=== PATIENT | female | born 1985 ===

== ENCOUNTER 2017-01-08 10:57 | Emergency (ER) | payer SELFPAY ==
[2017-01-08 11:51] VITALS: BMI 30.2
[2017-01-08] MEDS ORDERED: Lactated Ringer's 1,000 ML IV SCH (12:15)
--- NOTE | 2017-01-08 14:24 | OBHP ---
Datetime: 01/08/2017 12:02 IP Adm Impression: Term, intrauterine IP Admit Plan: Observation/Evaluation; Discharge home Admit Comment, IP Provider: 31 yo at 39.4 weeks GA, with ASHOK 01/11 by 1st trimester u/s pres ented to ARIANNA with contractions since 5 am. Rates contraction pain 3-05/30. Denies vaginal bleeding, d enies loss of fluid. Reports movement; states yesterday movement was decreased but today is present. OBhx: 2 NVD (2003 at full term, 2010 induction at 36 weeks due to cholestasis). 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 Sierra labs unremarkable. Threatened PTL at 29-30 weeks, tx with steroids, magnesium sulfate and terbutaline. ROS: denies headache, dizziness, sob, chest pain, n/v/d/c, burning with urination PE: Gen: alert, oriented CV: S1S2 present, RRR Resp: clear to auscultation bilaterally, normal resp effort Abd: gravid, +BS Extremities: no edema, no tenderness SVE: FT, long, thick. A/P: 31 yo at 39.4 weeks GA, ryanne regularly but not in active labor. 1L NS Re-evaluate in 2-3 hrs or as needed for cervical changes Pt seen and discussed with Dr. Mann. -[email or web address]. Addendum at 14:15 SVE: unchanged, still FT, thick, high, posterior. D/c home with labor precautions. F/u at [facility] on Monday OB Hospitalist Addendum: Pt seen and examined. Agree w/ above. 31 yo at 39+4 wks w/ c/o painful ctxns since 5am, denies LOF and VB, reports decreased movement. VE FT/ long/ posterio r at 12 noon. Pt received IVF, ate lunch, and ambulated. VE unchanged at 2:09 pm. Pt reported feel ing movement. Discharged home w/ labor precautions. Pt has an appoint on Mon., 01/11/2017. (ES) Pelvic Type - PN: Adequate Extremities - PN: Normal Abdomen - PN: Normal Back - PN: Normal Breast - PN: Not Done Lungs - PN: Normal Heart - PN: Normal Thyroid - PN: Not Done Neurologic - PN: Normal HEENT - PN: Normal General - PN: Normal FHR - Baseline A Provider: 150 Comments, ACOG Physical Exam: SVE @ 12:00 FT, thick, high, posterior. SVE @ 14:15 - unchanged Gestation - Est Wks by US: 39.4 EGA AdmitDate IP: 39.4 Vital Signs Provider: Reviewed IP Chief Complaint: Uterine contractions NICHD Variability Prov Fetus A: Moderate 6-25bpm NICHD Accel Fetus A IP Provider: 15X15 FHR Category Provider Fetus A: Category I Dilatation, Provider: FT Genitourinary Exam: Normal DTRs - PN: Not Done
[2017-01-08 18:28] VITALS: BP 102/53; PULSE 59; TEMP 97.9
== END 2017-01-08 14:20 | disposition home or self-care (01) ==
LOC: H.EROB2 10:57
DX: O47.1 False labor at or after 37 completed weeks of gestation (principal); Z3A.39 39 weeks gestation of pregnancy
CPT/HCPCS: 99283; J7120

== ENCOUNTER 2017-01-18 10:02 | Inpatient (IN) | payer MEDICAID, SELFPAY ==
[2017-01-18] MEDS ORDERED: Lactated Ringer's 1,000 ML IV SCH ×2 (11:45)
[2017-01-18 13:40] LABS: BASO % 0.3 % (0.0-2.0); EOS # 0.1 K/uL (0.0-0.7); EOS % 0.9 % (0.0-4.0); HEMATOCRIT 36.1 % (34.0-47.0); LYMPH # 1.3 K/uL (1.0-4.3); LYMPH % 22.5 % (20.0-40.0); MEAN CELL VOLUME 89.1 fl (81.0-99.0); MEAN CORPUSCULAR HEMOGLOBIN 29.4 pg (27.0-31.0); MEAN PLATELET VOLUME 10.9 fl (7.2-11.7); MONO # 0.5 K/uL (0.0-0.8); MONO % 8.5 % (0.0-10.0); NEUT # 3.9 K/uL (1.8-7.0); NEUT % 67.8 % (50.0-75.0); NRBC % 0.1 % (0.0-0.0); RED CELL DISTRIBUTION WIDTH 14.2 % (11.5-14.5); WHITE BLOOD COUNT 5.8 K/uL (4.8-10.8)
[2017-01-19] MEDS ORDERED: Fentanyl/Bupivacaine HCl 250 ML EPI ONE (04:06)
[2017-01-19] MEDS ORDERED: Bupivacaine HCl 0.25% PF (10 ml) Inj ONE (04:06)
[2017-01-19] MEDS ORDERED: Oxytocin 30 UNITS in Sodium Chloride 0.9% 500 ML IV ONE (05:05)
[2017-01-19] MEDS ORDERED: Lidocaine 1% Inj (20ml) ONE (05:10)
--- NOTE | 2017-01-19 08:02 | OBHP ---
Datetime: 01/18/2017 11:42 IP Adm Impression: Postterm, intrauterine IP Admit Plan: Admit to unit; Initiate labor protocol; Initiate labor induction protocol Admit Comment, IP Provider: CC: IOL HPI: 31YO @ 41wks is seen in L_D for IOL. Pt states that she is feeling well. Endorses good F M, no LOF, VB and occasional ctx. Pt is comfortable. Prentals: Dr. Hair, [facility] OBHx: NVD x 2 2003 and 2010(IOL @ 36 wks for cheolestasis) GyNHx: normal pap, Denies STIs PMH: denies SurgH: denies FH: denies SH: denies ETOH, smoking, and illicit drug use Allergies: NKDA Meds: PNV PE Vitals: stable Gen: NAD Cardio: S1S2 no M/G/R Resp: vesicular breathing b/l Abdomen: gravid, NT, BS+ Neuro: AAO x 3 Ext: no edema noted, NT FM: 140, moderate variability catagory I Cervx: 1cm/thick/-3 bedside u/s: vertex Assessment/Plan: 31YO @ 41wks is admitted for IOL. GBS neg, HIV neg, RPR neg, O+, HepB neg, H epB neg, rubella immune. -admit pt -vitals -continue FM -blood work -IV fluids Samaria Panchal, PGY I The patient was seen with the resident and I agree with note Pelvic Type - PN: Adequate Extremities - PN: Normal Abdomen - PN: Normal Back - PN: Normal Breast - PN: Not Done Lungs - PN: Normal Heart - PN: Normal Thyroid - PN: Normal Neurologic - PN: Not Done HEENT - PN: Normal General - PN: Normal FHR - Baseline A Provider: 140 EGA AdmitDate IP: 41.0 Vital Signs Provider: Reviewed; Within Normal Limits IP Indication for Induction: Postterm IP Chief Complaint: Scheduled induction of labor NICHD Variability Prov Fetus A: Moderate 6-25bpm NICHD Accel Fetus A IP Provider: 15X15 FHR Category Provider Fetus A: Category I Dilatation, Provider: 1cm Effacement, Provider: thick Station, Provider: -3 Genitourinary Exam: Normal DTRs - PN: Not Done
--- NOTE | 2017-01-19 08:02 | OBDS ---
DELIVERY PERSONNEL Delivery Doctor: Henri Bar MD Scrub Nurse: Brandy Mayers Alarm Technician: Karma Hall RN Anesthesiologist: Marilee Valentin MD Resident: Dr. Blackman PGY1 MATERNAL INFORMATION Delivery Anesthesia: Epidural Medications in Delivery: 30 units of pitocin Placenta Cultured: No Maternal Complications: None Provider Comments: Over intact perineum, of live male at 5:29am, Weight 3795gm, 9/9 APGA R. Right Anterior shoulder was delivered after head delivered in a controlled manner followed by post. shoulder and body. Infant was placed on mother, skin to skin was done. Infant was bulb suctioned nasopharygeally a nd crying spontaneously. umbilical cord was clamped and cut by baby's father. Placenta was delivered intact spontaneously. No Laceration noted. EBL 200cc. patient and baby remained stable Supervising Attending: Dr. Bar --- Nichole Blackman, PGY-1 I was present at delivery I agree with note LABOR SUMMARY EDC: 01/11/2017 00:00 No. Babies in Womb: 1 Attempted: No Labor Anesthesia: Epidural LABOR INFORMATION Reason for Induction: Postterm Onset of Labor: 01/19/2017 02:45 Complete Dilatation: 01/19/2017 05:05 Cervical Ripening Agents: Cervidil Oxytocin: N/A Group B Beta Strep: Negative Antibiotics # of Doses: n/a Antibiotics Time of Last Dose: n/a Steroids Given: None Reason Steroids Not Administered: Not Applicable MEMBRANES Membranes Rupture Method: Spontaneous Rupture of Membranes: 01/19/2017 05:05 Length of Rupture (hrs): 0.40 Amniotic Fluid Color: Clear Amniotic Fluid Amount: Moderate Amniotic Fluid Odor: Normal STAGES OF LABOR Stage 1 hrs: 2 Stage 1 min: 20 Stage 2 hrs: 0 Stage 2 min: 24 Stage 3 hrs: 0 Stage 3 min: 3 Total Time in Labor hrs: 2 Total Time in Labor min: 47 VAGINAL DELIVERY Episiotomy: None Laceration Extension: N/A Laceration Type: None Laceration Repair: Not Applicable Laceration Repair Note: None Initial Vag Sponge Count: 5 Final Vag Sponge Count: 5 Initial Vag Sharps Count: 0 Final Vag Sharps Count: 0 Sponge Count Correct: Yes Sharps Count Correct: N/A BABY A INFORMATION Infant Delivery Date/Time: 01/19/2017 05:29 Method of Delivery: Vaginal Born in Route : No : N/A Forceps: N/A Vacuum Extraction: N/A Shoulder Dystocia : No SHOULDER DYSTOCIA BABY A Infant Delivery Date/Time: 01/19/2017 05:29 PRESENTATION/POSITION BABY A Presentation: Cephalic Cephalic Presentation: Vertex Breech Presentation: N/A PLACENTA INFORMATION BABY A Placenta Delivery Time : 01/19/2017 05:32 Placenta Method of Delivery: Spontaneous Placenta Status: Delivered SCORES BABY A Heart Rate 1 min: >100 bpm Resp Effort 1 min: Good Cry Reflex Irritability 1 min: Cough or Sneeze or Pulls Away Muscle Tone 1 min: Active Motion Color 1 min: Body [place], Extremities Blue Resuscitation Effort 1 min: Tactile Stimulation SCORE 1 MIN: 9 Heart Rate 5 min: >100 bpm Resp Effort 5 min: Good Cry Reflex Irritability 5 min: Cough or Sneeze or Pulls Away Muscle Tone 5 min: Active Motion Color 5 min: Body [place], Extremities Blue Resuscitation Effort 5 min: N/A SCORE 5 MIN: 9 INFORMATION BABY A Gestational Age at Delivery: 41.1 Gestational Status: Post-term Outcome : Liveborn Infant Condition : Stable Sex: Male IDENTIFICATION/MEDS BABY A ID Band Number: [id number] ID Band Location: Left Leg; Left Arm WEIGHT/LENGTH BABY A Infant Birthweight (gms): 3795 Infant Weight (lb): 8 Infant Weight (oz): 6 CORD INFORMATION BABY A No. Cord Vessels: 3 Nuchal Cord : N/A Nuchal Cord Other: N/A True Knot: N/A Cord pH Baby Arterial: N/A Cord pH Baby Venous: N/A Cord Blood Taken: Yes Banking/Donate Info: N/A Infant Suction: Mouth; Nose ASSESSMENT BABY A Infant Complications: None Physical Findings at Delivery: Within Normal Limits Physical Findings Other: immediate skin to skin performed Infant Respirations: Appears Normal Orthopedic Podiatrist/ALS Called : No Infant Care By: Kota Transferred To: Remains with Mother
[2017-01-19] MEDS ORDERED: Oxycodone/Acetaminophen 5/325 mg Tab PO PRN (10:02)
[2017-01-19] MEDS: Simethicone 80 mg Chewtab PO PRN ×2 (10:58→16:30)
--- NOTE | 2017-01-20 08:21 | OBPPN ---
Datetime: 01/20/2017 06:52 PP Pain Prov: Within normal limits PP Nausea Prov: Denies PP Flatus Prov: Yes PP BM Prov: No PP Heart Prov: Normal PP Lungs Prov: Normal PP Abdomen/Uterus Prov: Normal PP Lochia Prov: Normal PP Vulva/Perineum Prov: Normal PP Extremities Prov: Normal PP Progress Prov: Normal PP Impression Prov: Normal progression PP Plan Prov: Continue present management PP Progress Note Prov: PPD1 S: pt seen and examined bedside this AM. PPD1, s/p NVD. No acute overnight events. Admits mild benny n. Pt is eating liquid and regular diet. Ambulating, voiding w/out any difficulty. Patient is breast and bottle feeding her baby. -/- gas, BM. Denies fever, chills, headache, chest pain, dyspnea, palpit ations, n/v/d/c and remains afebrile. O: VS stable GEN: NAD Cardio: S1S2 no M/G/R Resp: vesicular breathing b/l Abdomen: no tenderness to palpation. BS-, Fundus is firm, at the umbilicus Neuro: AAO x 3 Ext: no edema noted, no calf tenderness Assessment/Plan: 31 y/o female, delivered @ 41 wks to a Male infant via NVD on 01/19/17. Doing well PPD1. OOB with caution Percocet 5/325mg 1-2 tablets po q6 for mod/sev pain Ibuprofen 600mg 1 tab Encourage and ambulation Sen[place]ot 17.2mg PO qHS F/u Post op CBC --- Nichole Blackman, PGY I OB Hospitalist Addendum: Pt seen and examined by me. Agree w/ above. PPD 1 s/p , doing well, breast feeding. (ES) IP PP Procedures: None Vital Signs Provider PP: Reviewed; Within Normal Limits
[2017-01-20] MEDS ORDERED: Prenatal Multivit/Folic Acid/Iron Tab PO SCH (09:00)
[2017-01-20 09:21] LABS: BASO % 0.1 % (0.0-2.0); EOS # 0.1 K/uL (0.0-0.7); EOS % 0.7 % (0.0-4.0); HEMATOCRIT 34.8 % (34.0-47.0); LYMPH # 2.4 K/uL (1.0-4.3); LYMPH % 23.9 % (20.0-40.0); MEAN CELL VOLUME 88.6 fl (81.0-99.0); MEAN CORPUSCULAR HEMOGLOBIN 30.2 pg (27.0-31.0); MEAN PLATELET VOLUME 10.4 fl (7.2-11.7); MONO # 0.4 K/uL (0.0-0.8); NEUT # 7.2 K/uL (1.8-7.0); NEUT % 71.3 % (50.0-75.0); RED CELL DISTRIBUTION WIDTH 14.2 % (11.5-14.5)
[2017-01-20] MEDS: Prenatal Multivit/Folic Acid/Iron Tab PO SCH (09:30)
[2017-01-21] MEDS: Prenatal Multivit/Folic Acid/Iron Tab PO SCH (08:53)
--- NOTE | 2017-01-21 09:44 | OBDCSUM ---
Datetime: 01/21/2017 07:45 Discharged to, Provider: Home Follow up at, Provider: [facility] Disch Instr Activity: Normal activity Disch Instr Diet: Regular Discharge Instructions, Provider: Routine instructions given Discharge Diagnosis, Provider: Term Delivered Follow up in weeks, Provider: on 02/28/17 Contraception discussed, Prov: Yes Disch Activity Restrictions: No sexual activity; Nothing in vagina - [place], tampons, douche Discharge Comment, Provider: Discharge to home today PNV 1 PO qdaily Ibuprofen 600 mg 1 tab po prn q6 if moderate/severe pain Encourage and ambulatory Follow up at your clinic on 02/28/17 at 1:30 pm. OB Hospitalist on-call : On rounds this morning, I saw and examined this patient. Agree with note . MAHNDO Contraception after Delivery: Not Planning to Use
--- NOTE | 2017-01-21 12:47 | OBPPN ---
Datetime: 01/21/2017 10:13 PP Nausea Prov: Denies PP Flatus Prov: Yes PP BM Prov: Yes PP Heart Prov: Normal PP Lungs Prov: Normal PP Abdomen/Uterus Prov: Normal PP Lochia Prov: Normal PP Vulva/Perineum Prov: Normal PP CVA Tenderness Prov: Normal PP Extremities Prov: Normal PP Impression Prov: Normal progression PP Plan Prov: Discharge PP Progress Note Prov: Pt seen and examined bedside this AM. PPD2, s/p NVD. No acute overnight event s. Admits mild pain. Pt is eating liquid and regular diet. Ambulating, voiding w/out any difficulty. Patient is breast and bottle feeding her baby. Passing gasses and has regular BM. Denies fever, chill s, headache, chest pain, dyspnea, palpitations, n/v/d/c and remains afebrile. PE GEN: NAD Cardio: S1S2 no M/G/R Resp: vesicular breathing b/l Abdomen: no tenderness to palpation. BS-, Fundus is firm, at the umbilicus Neuro: AAO x 3 Ext: no edema noted, no calf tenderness Assessment/Plan: 31 y/o female, doing well on PPD2. Discharge to home today PNV 1 PO qdaily Ibuprofen 600 mg 1 tab po prn q6 if moderate/severe pain Encourage and ambulatory Follow up at [facility] clinic on 02/28/17 at 1:30 pm. Case discussed with Dr Rajni Fernandez PGY-1. OB Hospitalist on-call : On rounds this morning, I saw and examined this patient. Agree with note . BLOSSOM ALCAZAR PP Procedures: None
[2017-01-21 20:11] VITALS: BP 96/59; PULSE 65; RESP 18; TEMP 98.5; O2SAT 99
== END 2017-01-21 13:40 | disposition home or self-care (01) | DRG 373 ==
LOC: H.L&D 11:37 → H.OB/GYN 01-19 08:30
PROVIDERS: ADMIT Obstetrics & Gynecology; ATTEND Obstetrics & Gynecology
PROC: 4A1HXCZ Monitoring of Products of Conception, Cardiac Rate, External Approach (ICD-10-PCS; 2017-01-18)
PROC: 10E0XZZ Delivery of Products of Conception, External Approach (ICD-10-PCS; principal; 2017-01-19)
DX: O48.0 Post-term pregnancy (principal); Z37.0 Single live birth; Z3A.41 41 weeks gestation of pregnancy

== ENCOUNTER 2017-01-24 12:12 | Emergency (ER) | payer MEDICAID, SELFPAY ==
[2017-01-24 12:12] VITALS: BMI 30.2
[2017-01-24 12:21] VITALS: BP 114/53; PULSE 73; RESP 16; TEMP 98.2; O2SAT 97
[2017-01-24] MEDS ORDERED: Iohexol 240 (50 ml) PO ONE (14:16)
--- NOTE | 2017-01-24 14:20 | ED PDOC ---
HPI: Abdomen Time Seen by Provider: 01/24/17 12:50 Chief Complaint (Nursing): Abdominal Pain History Per: Patient History/Exam Limitations: no limitations Onset/Duration Of Symptoms: Days (1), Gradual Current Symptoms Are (Timing): Still Present Severity: Mild Location Of Pain/Discomfort: Diffuse Quality Of Discomfort: Dull, Cramping Associated Symptoms: Nausea, Vomiting, Diarrhea. denies: Fever, Chills, Loss Of Appetite, Back Pain, Chest Pain, Constipation, Urinary Symptoms Exacerbating Factors: None Alleviating Factors: None Additional History Per: Patient Additional Complaint(s): Pt generalized abd pain and diarrhea x 1 day. Pt concerned because she is s/p vaginal delivery 5 days ago and is . Abnormal Vaginal Bleeding: No Past Medical History Reviewed: Historical Data, Nursing Documentation, Vital Signs Vital Signs: Last Vital Signs Temp 98.2 F 01/24/17 12:19 Pulse 73 01/24/17 12:19 Resp 16 01/24/17 12:19 BP 114/53 L 01/24/17 12:19 Pulse Ox 97 01/24/17 14:20 - Medical History PMH: Pneumonia Denies: Depression, Diabetes, HTN - Family History Family History: States: Unknown Family Hx - Living Arrangements Living Arrangements: With Family - Social History Current smoker - smoking cessation education provided: No - Immunization History Hx Tetanus Toxoid Vaccination: No Hx Influenza Vaccination: No Hx Pneumococcal Vaccination: No - Home Medications Home Medications: Ambulatory Orders Medication Instructions Recorded Atropine/Diphenoxylate [Lonox 1 tab PO BID PRN #12 tab 01/24/17 0.025 MG-2.5 MG] - Allergies Allergies/Adverse Reactions: Allergies Allergy/AdvReac Type Severity Reaction Status Date / Time No Known Allergies Allergy Verified 04/13/15 09:46 Review of Systems ROS Statement: Except As Marked, All Systems Reviewed And Found Negative Constitutional: Negative for: Fever, Chills Cardiovascular: Negative for: Chest Pain, Palpitations Respiratory: Negative for: Cough, Shortness of Breath Gastrointestinal: Positive for: Vomiting, Abdominal Pain, Diarrhea. Negative for: Nausea, Melena, Hematochezia, Hematemesis Genitourinary Female: Negative for: Dysuria, Frequency, Vaginal Discharge, Vaginal Bleeding, Pelvic Pain Neurological: Negative for: Weakness, Numbness Physical Exam - Reviewed Nursing Documentation Reviewed: Yes Vital Signs Reviewed: Yes - Physical Exam Appears: Positive for: Uncomfortable Head Exam: Positive for: ATRAUMATIC, NORMAL INSPECTION, NORMOCEPHALIC Eye Exam: Positive for: Normal appearance, EOMI, PERRL Neck: Positive for: Normal, Painless ROM, Supple Cardiovascular/Chest: Positive for: Regular Rate, Rhythm, Chest Non Tender Respiratory: Positive for: Normal Breath Sounds. Negative for: Decreased Breath Sounds, Accessory Muscle Use, Crackles Gastrointestinal/Abdominal: Positive for: Bowel Sounds, Soft, Tenderness (mild diffuse), Other (enlarged uterus). Negative for: Distended, Guarding, Rebound, Hernia, Asicites Back: Positive for: Normal Inspection. Negative for: L CVA Tenderness, R CVA Tenderness, Vertebral Tenderness, Decreased ROM Extremity: Positive for: Normal ROM. 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 Negative for: Motor/Sensory Deficits - Laboratory Results Result Diagrams: 01/24/17 14:14 01/24/17 14:14 - ECG O2 Sat by Pulse Oximetry: 97 Pulse Ox Interpretation: Normal - Progress ED Course And Treament: PROCEDURE: CT Abdomen and Pelvis with oral and IV contrast. HISTORY: diffuse abd pain with diarrhea s/p delivery COMPARISON: None available TECHNIQUE: Contiguous axial images of the abdomen and pelvis. Oral and IV contrast was administered. Coronal and Sagittal reformats generated and reviewed. Contrast dose: 95 mL Omnipaque 300 Radiation dose: Total exam DLP = 640.04 open mGy-cm. This CT exam was performed using one or more of the following dose reduction techniques: Automated exposure control, adjustment of the mA and/or kV according to patient size, and/or use of iterative reconstruction technique. FINDINGS: LOWER THORAX: No visible consolidation, pleural effusion, or pneumothorax. Appearance of bilateral breast soft tissues consistent with status. LIVER: Scattered hepatic calcifications, likely granulomas. Hypoattenuation of the liver compatible with hepatic steatosis. Hepatomegaly. GALLBLADDER AND BILE DUCTS: Unremarkable. PANCREAS: Unremarkable. SPLEEN: Unremarkable. ADRENALS: Unremarkable. KIDNEYS AND URETERS: The kidneys enhance symmetrically. No hydronephrosis or obstructing renal calculus. BLADDER: Decompressed urinary bladder limits evaluation. REPRODUCTIVE: Enlarged heterogeneous uterus. APPENDIX: The appendix appears within normal limits of caliber. No secondary signs of acute appendicitis. BOWEL: The stomach is nondistended. The bowel loops appear within normal limits of caliber without evidence of intestinal obstruction. PERITONEUM: No significant free fluid. No definite free air. LYMPH NODES: No bulky lymphadenopathy identified. VASCULATURE: No aortic aneurysm. BONES: No acute osseous abnormality is detected. OTHER FINDINGS: None. IMPRESSION: Enlarged heterogeneous uterus. Scattered hepatic calcifications, likely granulomas. Hypoattenuation of the liver compatible with hepatic steatosis. Hepatomegaly. No signs of colitis. advise f/u of cultures. advise copius hand washing. pt agree's with plan repeat abd exam non tender. Re-evaluation Time: 17:19 Condition: Improved Disposition - Clinical Impression Clinical Impression: Diarrhea - Patient ED Disposition Is Patient to be Admitted: No Counseled Patient/Family Regarding: Studies Performed, Diagnosis, Need For Followup - Disposition Referrals: [facility] [Outside] (2 to 3 days) Disposition: Routine/Home Disposition Time: 17:20 Condition: GOOD Prescriptions: Atropine/Diphenoxylate [Lonox 0.025 MG-2.5 MG] 1 tab PO BID PRN #12 tab PRN Reason: Diarrhea Instructions: Acute Diarrhea (ED) Forms: [employer] (Armenian)
[2017-01-24 14:41] LABS: BASO % 0.1 % (0.0-2.0); EOS # 0.2 K/uL (0.0-0.7); EOS % 2.9 % (0.0-4.0); HEMATOCRIT 37.3 % (34.0-47.0); LYMPH # 0.7 K/uL (1.0-4.3); LYMPH % 9.3 % (20.0-40.0); MEAN CORPUSCULAR HEMOGLOBIN 29.5 pg (27.0-31.0); MEAN CORPUSCULAR HGB CONC 33.2 g/dL (33.0-37.0); MEAN PLATELET VOLUME 9.4 fl (7.2-11.7); MONO # 0.2 K/uL (0.0-0.8); MONO % 3.3 % (0.0-10.0); NEUT # 6.2 K/uL (1.8-7.0); NEUT % 84.4 % (50.0-75.0); NRBC % 0.1 % (0.0-0.0); PLATELET COUNT 273 K/uL (130-400); RED CELL DISTRIBUTION WIDTH 14.4 % (11.5-14.5); WHITE BLOOD COUNT 7.3 K/uL (4.8-10.8)
[2017-01-24 14:42] LABS: ALKALINE PHOSPHATASE 229 U/L (38-126); ALT/SGPT 118 U/L (9-52); AMYLASE 89 U/L (30-110); AST/SGOT 58 U/L (14-36); BILIRUBIN,TOTAL 0.3 mg/dl (0.2-1.3); BLOOD UREA NITROGEN 13 mg/dl (7-17); CALCIUM 7.9 mg/dL (8.4-10.2); CARBON DIOXIDE 20 mmol/L (22-30); CHLORIDE 113 mmol/L (98-107); GFR AFRICAN-AMERICAN > 60; GLUCOSE,RANDOM 89 mg/dL (65-105); LIPASE 111 U/L (23-300); POTASSIUM 3.8 MMOL/L (3.6-5.0); SODIUM 140 mmol/l (132-148); TOTAL PROTEIN 6.8 G/DL (6.3-8.2)
[2017-01-24 14:50] LABS: ALB/GLOB RATIO 0.9 (1.0-2.1)
[2017-01-24 15:08] LABS: URINE BILIRUBIN NEGATIVE (NEGATIVE); URINE BLOOD MODERATE (NEGATIVE); URINE COLOR YELLOW (YELLOW); URINE GLUCOSE (UA) NEG (Normal); URINE KETONE NEGATIVE (NEGATIVE); URINE LEUKOCYTE ESTERASE NEG Leu/uL (Negative); URINE PROTEIN NEGATIVE (NEGATIVE); URINE UROBILINOGEN 0.2-1.0 mg/dL (0.2-1.0); WBC URINE 2 /hpf (0-5)
[2017-01-24 15:15] LABS: EOSINOPHIL 1 % (0-7); NEUTROPHIL 84 % (42-75); TOTAL CELLS COUNTED 100
[2017-01-24 15:25] LABS: RBC URINE 19 /hpf (0-3)
[2017-01-24] MEDS ORDERED: Iohexol 300 100 ML IJ ONE (16:32)
[2017-01-24] MEDS ORDERED: Sodium Chloride 0.9% 50 ML IV ONE (16:33)
--- NOTE | 2017-01-24 17:16 | CT ---
PROCEDURE: CT Abdomen and Pelvis with oral and IV contrast. HISTORY: diffuse abd pain with diarrhea s/p delivery COMPARISON: None available TECHNIQUE: Contiguous axial images of the abdomen and pelvis. Oral and IV contrast was administered. Coronal and Sagittal reformats generated and reviewed. Contrast dose: 95 mL Omnipaque 300 Radiation dose: Total exam DLP = 640.04 open mGy-cm. This CT exam was performed using one or more of the following dose reduction techniques: Automated exposure control, adjustment of the mA and/or kV according to patient size, and/or use of iterative reconstruction technique. FINDINGS: LOWER THORAX: No visible consolidation, pleural effusion, or pneumothorax. Appearance of bilateral breast soft tissues consistent with status. LIVER: Scattered hepatic calcifications, likely granulomas. Hypoattenuation of the liver compatible with hepatic steatosis. Hepatomegaly. GALLBLADDER AND BILE DUCTS: Unremarkable. PANCREAS: Unremarkable. SPLEEN: Unremarkable. ADRENALS: Unremarkable. KIDNEYS AND URETERS: The kidneys enhance symmetrically. No hydronephrosis or obstructing renal calculus. BLADDER: Decompressed urinary bladder limits evaluation. REPRODUCTIVE: Enlarged heterogeneous uterus. APPENDIX: The appendix appears within normal limits of caliber. No secondary signs of acute appendicitis. BOWEL: The stomach is nondistended. The bowel loops appear within normal limits of caliber without evidence of intestinal obstruction. PERITONEUM: No significant free fluid. No definite free air. LYMPH NODES: No bulky lymphadenopathy identified. VASCULATURE: No aortic aneurysm. BONES: No acute osseous abnormality is detected. OTHER FINDINGS: None. IMPRESSION: Enlarged heterogeneous uterus. Scattered hepatic calcifications, likely granulomas. Hypoattenuation of the liver compatible with hepatic steatosis. Hepatomegaly.
== END 2017-01-24 17:39 | disposition home or self-care (01) ==
LOC: H.ER 12:12
DX: R19.7 Diarrhea, unspecified (principal)
CPT/HCPCS: 74177; 80053; 81003; 81025; 82150; 83690; 85025; 87045; 87230; 89055; 99283; Q9966; Q9967

== ENCOUNTER 2018-05-05 20:06 | Emergency (ER) | payer SELFPAY ==
[2018-05-05 20:06] VITALS: BMI 30.2
[2018-05-05 20:29] VITALS: BP 109/68; PULSE 63; RESP 16; TEMP 98.4; O2SAT 98
--- NOTE | 2018-05-05 21:42 | ED PDOC ---
HPI: Allergic Reaction Time Seen by Provider: 05/05/18 21:20 Chief Complaint (Nursing): Allergic Reaction Chief Complaint (Provider): Allergic Reaction History Per: Patient History/Exam Limitations: no limitations Onset/Duration Of Symptoms: Days (2x ) Current Symptoms Are (Timing): Still Present Possible Cause: Other (eye mask) Associated Symptoms: Skin Rash, Swelling, Redness Home/EMS Treatment: Other (anti itch cream) Severity: Moderate Additional Complaint(s): 32 year old female with no past medical history presents to the ED for an evaluation of an allergic reaction that started yesterday. Patient states that 2x nights ago she used a "collagen crystal eye mask", and woke up yesterday morning periorbital eye itching and slight swelling- more so the right eye than the left eye. Patient reports using anti-itch cream with no relief, prompting ED visit. Patient denies having visual changes, fevers, nausea, or vomiting. PMD: None provided. Past Medical History Reviewed: Historical Data, Nursing Documentation, Vital Signs Vital Signs: Last Vital Signs Temp 98.4 F 05/05/18 20:28 Pulse 63 05/05/18 20:28 Resp 16 05/05/18 20:28 BP 109/68 05/05/18 20:28 Pulse Ox 98 05/05/18 20:28 JORGE Report Viewed: Yes - Medical History PMH: No Chronic Diseases, Pneumonia Denies: Depression, Diabetes, HTN - Family History Family History: States: No Known Family Hx - Social History Current smoker - smoking cessation education provided: No Alcohol: None Drugs: Denies - Immunization History Hx Tetanus Toxoid Vaccination: No Hx Influenza Vaccination: No Hx Pneumococcal Vaccination: No - Home Medications Home Medications: Ambulatory Orders Medication Instructions Recorded Atropine/Diphenoxylate [Lonox 1 tab PO BID PRN #12 tab 01/24/17 0.025 MG-2.5 MG] DiphenhydrAMINE [Benadryl] 50 mg PO Q6H PRN #20 cap 05/05/18 Famotidine [Pepcid] 20 mg PO HS #30 tab 05/05/18 predniSONE [predniSONE Tab] 60 mg PO DAILY #12 tab 05/05/18 - Allergies Allergies/Adverse Reactions: Allergies Allergy/AdvReac Type Severity Reaction Status Date / Time No Known Allergies Allergy Verified 05/05/18 20:29 Review of Systems ROS Statement: Except As Marked, All Systems Reviewed And Found Negative Constitutional: Negative for: Fever Eyes: Positive for: Other (periorbital itchiness and slight swelling, more to right eye than left.). Negative for: Vision Change Gastrointestinal: Negative for: Nausea, Vomiting Physical Exam - Reviewed Nursing Documentation Reviewed: Yes Vital Signs Reviewed: Yes - Physical Exam Appears: Positive for: Well, Non-toxic, No Acute Distress Head Exam: Positive for: ATRAUMATIC, NORMOCEPHALIC Skin: Positive for: Normal Color, Warm, Dry Eye Exam: Positive for: Periorbital swelling (redness and raised papular region to right eyelid.). Negative for: Scleral icterus, Other (visual changes) Neurological/Psych: Positive for: Awake, Alert, Oriented (3x) - Laboratory Results Urine POC: Negative - ECG O2 Sat by Pulse Oximetry: 98 (RA) Pulse Ox Interpretation: Normal - Progress ED Course And Treament: Prednisone Benadryl Pepcid 2150: Pt reassessed at this time. Slight improvement noted with redness. Pt reports she continues to feel itchy. Pt instructed to given medication more time for therapeutic effect. Pt given d/c instructions in djiboutian including RX given. Pt given advise return to ed precaution pt verbalizes understanding. Condition: Re-examined, Improving,but remains with symptoms Disposition - Clinical Impression Clinical Impression: Allergic reaction - Patient ED Disposition Is Patient to be Admitted: No Counseled Patient/Family Regarding: Diagnosis, Rx Given - Disposition Disposition: Routine/Home Disposition Time: 21:38 Condition: STABLE Prescriptions: DiphenhydrAMINE [Benadryl] 50 mg PO Q6H PRN #20 cap PRN Reason: Allergy Symptoms Famotidine [Pepcid] 20 mg PO HS #30 tab predniSONE [predniSONE Tab] 60 mg PO DAILY #12 tab Instructions: Allergy Skin Testing Print Language: SLOVAK - POA Present On Arrival: None Medical Decision Making Medical Decision Makin:20 Initial impression: 32 year old female with an allergic reaction Initial plan for course treatment: * upreg * benadryl 50 mg PO * prednisone 60 mg PO * pepcid 20 mg PO * reevaluation 21:38 Upon provider reevaluation patient is feeling better, is medically stable, and requires no further treatment in the ED at this time. Patient will be discharged home with with Rx for Benadryl, prednisone, and Pepcid. Patient is advised to stop using the collagen crystal eye masks. Counseling was provided and all questions were answered regarding diagnosis. There is agreement to discharge plan. Return if symptoms persist or worsen. --- ScribeAttestation: Documented byLidia De Leon, acting as a scribe for Genevieve Gibson MAINTENANCE COORDINATOR. Provider ScribeAttestation: All medical record entries made by the Scribe were at my direction and personally dictated by me. I have reviewed the chart and agree that the record accurately reflects my personal performance of the history, physical exam, medical decision making, and the department course for this patient. I have also personally directed, reviewed, and agree with the discharge instructions and disposition.
== END 2018-05-05 23:10 | disposition home or self-care (01) ==
LOC: H.ER 20:06
DX: T78.40XA Allergy, unspecified, initial encounter (principal)

== ENCOUNTER 2018-05-07 22:22 | Emergency (ER) | payer SELFPAY ==
[2018-05-07 22:23] VITALS: BMI 30.2
[2018-05-07 22:51] VITALS: BP 111/69; PULSE 61; RESP 18; TEMP 98.2; O2SAT 100
[2018-05-07] MEDS ORDERED: MethylPREDNISolone 40 mg Vial IM STA (23:51)
[2018-05-07] MEDS ORDERED: MethylPREDNISolone 40 mg Vial ONE (23:59)
--- NOTE | 2018-05-08 00:32 | ED PDOC ---
HPI: Allergic Reaction Time Seen by Provider: 05/07/18 22:55 Chief Complaint (Nursing): Allergic Reaction Chief Complaint (Provider): allergic reaction History Per: Patient Additional Complaint(s): 32 y/o F with no significant PMH who presents with worsening allergic reaction. Pt was seen in ED 2 days ago with rash to Right eye with swelling after having used a facial mask on her eyes. Pt was given a prescription for Prednisone 60mg PO x 1, Benadryl and Pepcid, which she has been taking. Pt states that the rash has progressed rather than improved since starting medications and that it continues to itch and burn. Denies SOB, throat or tongue swelling or itching. Is not using culprit cream any longer and has been using an anti-itch cream provided by pharmacist. Past Medical History Reviewed: Historical Data, Nursing Documentation, Vital Signs Vital Signs: Last Vital Signs Temp 98.2 F 05/07/18 22:50 Pulse 61 05/07/18 22:50 Resp 18 05/07/18 22:50 BP 111/69 05/07/18 22:50 Pulse Ox 100 05/07/18 22:50 - Medical History PMH: No Chronic Diseases, Pneumonia Denies: Depression, Diabetes, HTN - Family History Family History: States: Unknown Family Hx - Immunization History Hx Tetanus Toxoid Vaccination: No Hx Influenza Vaccination: No Hx Pneumococcal Vaccination: No - Home Medications Home Medications: Ambulatory Orders Medication Instructions Recorded Atropine/Diphenoxylate [Lonox 1 tab PO BID PRN #12 tab 01/24/17 0.025 MG-2.5 MG] DiphenhydrAMINE [Benadryl] 50 mg PO Q6H PRN #20 cap 05/05/18 Famotidine [Pepcid] 20 mg PO HS #30 tab 05/05/18 predniSONE [predniSONE Tab] 60 mg PO DAILY #12 tab 05/05/18 Loratadine [Claritin] 10 mg PO DAILY 5 Days tab 05/08/18 - Allergies Allergies/Adverse Reactions: Allergies Allergy/AdvReac Type Severity Reaction Status Date / Time No Known Allergies Allergy Verified 05/05/18 20:29 Review of Systems Constitutional: Negative for: Fever, Chills Skin: Positive for: Rash Physical Exam - Reviewed Nursing Documentation Reviewed: Yes Vital Signs Reviewed: Yes - Physical Exam Appears: Positive for: Uncomfortable Eye Exam: Positive for: EOMI, PERRL, Periorbital swelling. Negative for: Normal appearance (B/L eyes with maculopapular erythematous judy-orbital rash with associated mild edema, no drainage. ), Conjunctival injection ENT: Positive for: Normal ENT Inspection Neck: Negative for: Normal (maculopapular erythematous rash on anterior neck, no discharge. ) Neurological/Psych: Positive for: Awake, Alert, Oriented - ECG O2 Sat by Pulse Oximetry: 100 Disposition - Clinical Impression Clinical Impression: Contact allergic reaction - Patient ED Disposition Is Patient to be Admitted: No - Disposition Referrals: [facility] [Outside] Disposition: Routine/Home Disposition Time: 00:47 Condition: STABLE Additional Instructions: Follow up with your primary care doctor or dermatology for further evaluation of rash. Take Claritin instead of Benadryl for the rash. Use Calamine lotion for comfort. Stop taking Prednisone now that you received injection steroid. Use ice packs for eye discomfort. Prescriptions: Loratadine [Claritin] 10 mg PO DAILY 5 Days tab Instructions: Contact Dermatitis (DC) Forms: [employer] (Turkish), [facility] ED School/Work Excuse Print Language: GERMAN Medical Decision Making Medical Decision Making: Methylprednisolone 40mg IM x 1 Claritin 10mg PO x 1 12:30am: Re-evaluated: judy-orbital erythema has improved significantly on exam and patient states that itching has resolved. Patient advised to stop taking Prednisone and Benadryl but to continue Pepcid and start taking Claritin instead. She is to follow up with PMD this week for re-evaluation. Patient demonstrated understanding.
== END 2018-05-08 00:47 | disposition home or self-care (01) ==
LOC: H.ER 22:22
DX: T78.40XA Allergy, unspecified, initial encounter (principal)
CPT/HCPCS: 96372; 99282; J2920

== ENCOUNTER 2018-05-09 00:50 | Emergency (ER) | payer SELFPAY ==
[2018-05-09 00:50] VITALS: BMI 30.2
[2018-05-09 01:23] VITALS: RESP 16
[2018-05-09] MEDS ORDERED: DiphenhydrAMINE 50 mg/ml Inj IV STA (01:33)
--- NOTE | 2018-05-09 01:41 | ED PDOC ---
HPI: Allergic Reaction Time Seen by Provider: 05/09/18 01:19 Chief Complaint (Nursing): Eye Problem Chief Complaint (Provider): allergic reaction History Per: Patient History/Exam Limitations: no limitations Onset/Duration Of Symptoms: Days (4) Current Symptoms Are (Timing): Still Present Associated Symptoms: Swelling, Itching Additional Complaint(s): 32 y/o female presents for evaluation of allergic reaction x 4 days. Patient states on Monday she applied a new face mask and afterwards developed swelling to right eye, which she was evaluated in ED for and given PO predisone, pepcid, and benadryl and discharged. Patient states Monday swelling spread to both eyes, so she came back to ED and was given a steroid injection and advised to stop PO prednisone and just take claritin and pepcid. Patient reports medications have not helped with swelling; states today she noticed pruritic rash to neck and tonight developing itching to throat, which prompted ED visit. Denies fever, nausea/vomiting, difficulty speaking/swallowing, chest pain, shortness of breath, palpitations. Past Medical History Reviewed: Historical Data, Nursing Documentation, Vital Signs Vital Signs: Last Vital Signs Temp 97.5 F L 05/09/18 01:11 Pulse 65 05/09/18 01:11 Resp 16 05/09/18 01:11 BP 104/53 L 05/09/18 01:11 Pulse Ox 98 05/09/18 01:11 - Medical History PMH: Pneumonia Denies: Depression, Diabetes, HTN - Surgical History Surgical History: No Surg Hx - Family History Family History: States: Unknown Family Hx - Immunization History Hx Tetanus Toxoid Vaccination: No Hx Influenza Vaccination: No Hx Pneumococcal Vaccination: No - Home Medications Home Medications: Ambulatory Orders Medication Instructions Recorded Atropine/Diphenoxylate [Lonox 1 tab PO BID PRN #12 tab 01/24/17 0.025 MG-2.5 MG] DiphenhydrAMINE [Benadryl] 50 mg PO Q6H PRN #20 cap 05/05/18 Famotidine [Pepcid] 20 mg PO HS #30 tab 05/05/18 predniSONE [predniSONE Tab] 60 mg PO DAILY #12 tab 05/05/18 Loratadine [Claritin] 10 mg PO DAILY 5 Days tab 05/08/18 - Allergies Allergies/Adverse Reactions: Allergies Allergy/AdvReac Type Severity Reaction Status Date / Time No Known Allergies Allergy Verified 05/05/18 20:29 Review of Systems ROS Statement: Except As Marked, All Systems Reviewed And Found Negative Skin: Positive for: Rash Physical Exam - Reviewed Nursing Documentation Reviewed: Yes Vital Signs Reviewed: Yes - Physical Exam Appears: Positive for: Well, Non-toxic, No Acute Distress Head Exam: Positive for: ATRAUMATIC, NORMAL INSPECTION, NORMOCEPHALIC Skin: Positive for: Rash (hives noted to anterior neck) Eye Exam: Positive for: EOMI, PERRL, Periorbital swelling (bilateral periorbital edema/erythema). Negative for: Periorbital tenderness, Conjunctival injection ENT: Positive for: Normal ENT Inspection. Negative for: Pharyngeal Erythema, Tonsillar Exudate, Tonsillar Swelling Cardiovascular/Chest: Positive for: Regular Rate, Rhythm Respiratory: Positive for: Normal Breath Sounds Gastrointestinal/Abdominal: Positive for: Normal Exam Back: Positive for: Normal Inspection Extremity: Positive for: Normal ROM Neurological/Psych: Positive for: Awake, Alert, Oriented (x3) - ECG O2 Sat by Pulse Oximetry: 98 - Progress ED Course And Treament: -IV solumedrol -IV pepcid -IV benadryl On re-eval, patient states she is feeling better. Periorbital swelling and neck rash improving Patient was advised to take prednisone as previously prescribed, continue Claritin and Pepcid Follow up with PMD (has appt tomorrow) Return precautions given Disposition - Clinical Impression Clinical Impression: Allergic reaction - Patient ED Disposition Is Patient to be Admitted: No Counseled Patient/Family Regarding: Diagnosis, Need For Followup - Disposition Referrals: [facility] [Outside] Disposition: Routine/Home Disposition Time: 03:53 Condition: IMPROVED Instructions: Angioedema, Hives, Contact Dermatitis (DC) Print Language: ARMENIAN
[2018-05-09 04:14] VITALS: BP 106/73; PULSE 60; TEMP 97.9; O2SAT 99
== END 2018-05-09 04:17 | disposition home or self-care (01) ==
LOC: H.ER 00:50
DX: T78.40XA Allergy, unspecified, initial encounter (principal)
CPT/HCPCS: 96374; 96375; 99284; J1200; J2930